=== PATIENT | female | born 1965 | race African-American/Black ===

== ENCOUNTER 2023-03-25 13:05 | Inpatient (IN) | payer OTHER ==
[2023-03-25 13:31] VITALS: BMI 22.3
[2023-03-25] MEDS ORDERED: BISMUTH SUBSALICYLATE 262 MG/15 ML BTL PO PRN (14:31)
[2023-03-25] MEDS ORDERED: METHOCARBAMOL 500 MG TABLET PO PRN (14:31)
[2023-03-25] MEDS ORDERED: BENZONATATE 200 MG CAPSULE PO PRN (14:31)
[2023-03-25] MEDS ORDERED: NICOTINE 10 MG CARTRIDGE (INHALER) IH PRN (14:31)
[2023-03-25] MEDS ORDERED: guaiFENesin 600 MG TABLET.ER (FP) PO PRN (14:31)
[2023-03-25] MEDS ORDERED: AMMONIUM LACTATE 12% LOTION 225 GM BOTTLE TP PRN (14:31)
[2023-03-25] MEDS ORDERED: NALOXONE HCL (KLOXXADO) 8 MG SPRAY NS PRN (14:31)
[2023-03-25] MEDS ORDERED: LOPERAMIDE HCL 2 MG CAPSULE PO PRN (14:31)
[2023-03-25] MEDS ORDERED: ONDANSETRON *ODT* 4 MG TABLET SL PRN (14:31)
[2023-03-25] MEDS ORDERED: MAG HYDROX/AL HYDROX/SIMETH 30 ML UNIT-DOSE CUP PO PRN (14:31)
[2023-03-25] MEDS ORDERED: BENZOCAINE/MENTHOL (CHLORASEPTIC ) LOZENGE MM PRN (14:31)
[2023-03-25] MEDS ORDERED: IBUPROFEN 400 MG TABLET (FP) PO PRN (14:31)
[2023-03-25] MEDS ORDERED: IBUPROFEN 600 MG TABLET (FP) PO PRN (14:31)
[2023-03-25] MEDS ORDERED: NALOXONE HCL 0.4 MG/ML VIAL IM PRN (14:31)
[2023-03-25] MEDS ORDERED: POLYETHYLENE GLYCOL (HEALTHYLAX) 3350 17 GM PACKET PO PRN (14:31)
[2023-03-25] MEDS ORDERED: COLLOIDAL OATMEAL 1 BAR EACH TP PRN (14:31)
[2023-03-25] MEDS ORDERED: DICYCLOMINE HCL 10 MG CAPSULE PO PRN (14:31)
[2023-03-25] MEDS ORDERED: MAGNESIUM HYDROX 2400MG/30ML ORAL SUSPENSION 30 ML CUP PO PRN (14:31)
[2023-03-25] MEDS ORDERED: NICOTINE 21 MG/24 HOURS TOPICAL PATCH ONE (15:28)
[2023-03-25] MEDS: NICOTINE 21 MG/24 HOURS TOPICAL PATCH TD SCH (15:30)
[2023-03-25] MEDS: hydrOXYzine PAMOATE 25 MG CAPSULE (FP) PO PRN (17:16)
[2023-03-25] MEDS ORDERED: methaDONE HCL 40 MG DISPERSABLE TABLET PO SCH (18:45)
[2023-03-25] MEDS ORDERED: methaDONE HCL 10 MG TABLET PO SCH (18:45)
[2023-03-25] MEDS: MELATONIN 5 MG TABLETS PO SCH (22:22)
[2023-03-25] MEDS: THIAMINE HCL 100 MG TABLET (FP) PO SCH (22:22)
[2023-03-25] MEDS: ACETAMINOPHEN 325 MG TABLET (FP) PO PRN (22:23)
[2023-03-26] MEDS: methaDONE HCL 10 MG TABLET PO SCH (05:34)
[2023-03-26] MEDS: PRENATAL VITAMINS W/ FOLIC ACID TABLET (FP) PO SCH (10:17)
[2023-03-26] MEDS: NICOTINE 21 MG/24 HOURS TOPICAL PATCH TD SCH (10:17)
[2023-03-26] MEDS ORDERED: diazePAM 5 MG TABLET PO PRN (10:21)
[2023-03-26] MEDS: diazePAM 5 MG TABLET PO SCH ×3 (10:49→22:11)
[2023-03-26 10:51] LABS: HEMATOCRIT 33.1 % (32.4-45.2); HEMOGLOBIN 11.6 GM/dL (10.7-15.3); MCH 28.6 pg (25.7-33.7); MCHC 35.1 g/dl (32.0-36.0); MEAN CELL VOLUME 81.5 fl (80-96); MEAN PLT VOLUME 7.4 fl (7.5-11.1); PLATELET COUNT 611 10^3/uL (134-434); RBC 4.06 M/mm3 (3.60-5.2); RDW 15.5 % (11.6-15.6); WHITE BLOOD COUNT 7.5 K/mm3 (4.0-10.0)
[2023-03-26 10:55] LABS: POTASSIUM 4.5 mmol/L (3.5-5.1)
[2023-03-26 10:58] LABS: ALBUMIN 3.2 g/dl (3.4-5.0); BLOOD UREA NITROGEN 19.5 mg/dL (7-18)
[2023-03-26 11:03] LABS: BILIRUBIN,TOTAL 0.5 mg/dL (0.2-1); CALCIUM 8.9 mg/dL (8.5-10.1); CREATININE 0.8 mg/dL (0.55-1.3)
[2023-03-26 11:09] LABS: TOT PROT 6.5 g/dl (6.4-8.2)
[2023-03-26] MEDS: hydrOXYzine PAMOATE 25 MG CAPSULE (FP) PO PRN ×2 (13:36→22:13)
[2023-03-26] MEDS: ACETAMINOPHEN 325 MG TABLET (FP) PO PRN (17:39)
[2023-03-26] MEDS: THIAMINE HCL 100 MG TABLET (FP) PO SCH (22:11)
[2023-03-26] MEDS: MELATONIN 5 MG TABLETS PO SCH (22:11)
[2023-03-27] MEDS: diazePAM 5 MG TABLET PO SCH ×2 (05:44→10:39)
[2023-03-27] MEDS: methaDONE HCL 10 MG TABLET PO SCH (05:45)
[2023-03-27] MEDS: ACETAMINOPHEN 325 MG TABLET (FP) PO PRN (05:47)
[2023-03-27] MEDS: hydrOXYzine PAMOATE 25 MG CAPSULE (FP) PO PRN (05:49)
[2023-03-27 06:47] VITALS: BP 114/71; PULSE 70; RESP 17; TEMP 97.8
[2023-03-27] MEDS: NICOTINE 21 MG/24 HOURS TOPICAL PATCH TD SCH (09:46)
[2023-03-27] MEDS: PRENATAL VITAMINS W/ FOLIC ACID TABLET (FP) PO SCH (09:46)
[2023-03-28] MEDS ORDERED: diazePAM 5 MG TABLET PO SCH (06:00)
[2023-03-29] MEDS ORDERED: diazePAM 5 MG TABLET PO SCH (06:00)
[2023-03-30] MEDS ORDERED: diazePAM 5 MG TABLET PO ONE (06:00)
== END 2023-03-27 08:33 | disposition left against medical advice (07) | DRG 770 ==
LOC: YASAS 13:05 → Y3N 14:32
PROVIDERS: ADMIT Allergy & Immunology; ATTEND Surgery
PROC: HZ2ZZZZ Detoxification Services for Substance Abuse Treatment (ICD-10-PCS; principal; 2023-03-25)
DX: F11.23 Opioid dependence with withdrawal (principal); F10.230 Alcohol dependence with withdrawal, uncomplicated; F14.20 Cocaine dependence, uncomplicated; F17.210 Nicotine dependence, cigarettes, uncomplicated; F41.9 Anxiety disorder, unspecified; F32.A Depression, unspecified; F43.10 Post-traumatic stress disorder, unspecified; G47.00 Insomnia, unspecified; Z28.310 Unvaccinated for COVID-19; Z28.21 Immunization not carried out because of patient refusal
CPT/HCPCS: 36415; 80053; 85027; 86780; C9803-CS; U0003; U0005